=== PATIENT | female | born 1970 | race Caucasian/White ===

== ENCOUNTER 2016-09-23 17:25 | Emergency (ER) | payer BC ==
[2016-09-23 20:05] VITALS: BP 132/76
--- NOTE | 2016-09-23 20:30 | UC ---
Respiratory Complaint HPI - HPI Summary HPI Summary: sx started 2 weeks ago--coug, saw PCP, dx'd with viral illness; cough continues , now with post nasal drainage, scratchy throat, cough worsened in the past few days and with sinus pressure and productive post nasal drip and she hears occasional wheeze. [ End ] - History of Current Complaint Chief Complaint: UCGeneralIllness Stated Complaint: THROAT,COUGH Time Seen by Provider: 09/23/16 20:21 Hx Last Menstrual Period: 09/16/16 - Allergies/Home Medications Allergies/Adverse Reactions: Allergies Allergy/AdvReac Type Severity Reaction Status Date / Time Codeine AdvReac GI Verified 09/23/16 20:05 Penicillins AdvReac GI Verified 09/23/16 20:05 Sulfa Antibiotics AdvReac GI Verified 09/23/16 20:05 PMH/Surg Hx/FS Hx/Imm Hx Previously Healthy: Yes Endocrine History Of: Reports: Diabetes Cardiovascular History Of: Denies: Cardiac Disorders Respiratory History Of: Denies: COPD GI/ History Of: Denies: Gastroesophageal Reflux Neurological History Of: Denies: TIA Psychological History Of: Denies: Anxiety Cancer History Of: Denies: Lung Cancer - Surgical History Surgical History: Yes Surgery Procedure, Year, and Place: GB. foot surgery. . HYSTEROSCOPY , FEBRUARY 2014. WISDOM TEETH EXTRACTION--03/2015 - Family History Known Family History: Positive: Hypertension, Diabetes - Mother and Uncle - Social History Occupation: Employed Full-time - teacher Alcohol Use: None Substance Use Type: None Smoking Status (MU): Never Smoked Tobacco Have You Smoked in the Last Year: No - Immunization History Most Recent Influenza Vaccination: [id number] Review of Systems Constitutional: Fatigue Skin: Negative Eyes: Negative ENT: Nasal Discharge Respiratory: Cough Cardiovascular: Negative Gastrointestinal: Negative Genitourinary: Negative Motor: Negative Neurovascular: Negative Musculoskeletal: Negative Neurological: Negative Psychological: Negative All Other Systems Reviewed And Are Negative: Yes Physical Exam Triage Information Reviewed: Yes Appearance: Well-Appearing, No Pain Distress, Well-Nourished Vital Signs: Initial Vital Signs Temp 97.4 F 09/23/16 20:00 Pulse 106 09/23/16 20:00 Resp 18 09/23/16 20:00 BP 132/76 09/23/16 20:00 Pulse Ox 99 09/23/16 20:00 Vital Signs Reviewed: Yes Eye Exam: Normal ENT Exam: Normal ENT: Positive: Pharynx normal - purulent post nasal drip, Nasal drainage - purulent, TM dull, Other: - left frontal sinus tenderness to palpation Dental Exam: Normal Neck exam: Normal Neck: Positive: 1 Respiratory Exam: Normal Cardiovascular Exam: Normal Abdominal Exam: Normal Musculoskeletal Exam: Normal Neurological Exam: Normal Psychological Exam: Normal Skin Exam: Normal UC Diagnostic Evaluation - Laboratory O2 Sat by Pulse Oximetry: 99 Respiratory Course/Dx - Course Course Of Treatment: Due to duration of illness will advise she start netti pot and flonase daily and if Sx worse in the next 3 days then start augmentin. she states she had nausea with augmentin but can tolerate and will take with probiotics. - Differential Dx/Diagnosis Differential Diagnosis/HQI/PQRI: Bronchitis Provider Diagnoses: Bronchitis Discharge - Discharge Plan Condition: Good Disposition: HOME Prescriptions: Amoxicillin/Clavulanate TAB* [Augmentin TAB 875*] 875 mg PO BID #20 tab Patient Education Materials: Acute Bronchitis (ED) Referrals: Robert Kenny DO [Primary Care Provider] - 3 Days Additional Instructions: As we discussed you likely have a viral infection at this time but if your symptoms persist or worsen then you may start the prescribed oral antibiotic as you have been ill for > 2 weeks and not showing signs of improvement. If you end up taking the Augmentin please also take probiotics.
== END 2016-09-23 20:39 | disposition home or self-care (01) ==
LOC: UCCORT 17:25
DX: J20.9 Acute bronchitis, unspecified (principal); R09.82 Postnasal drip; R53.83 Other fatigue; E11.9 Type 2 diabetes mellitus without complications; Z88.0 Allergy status to penicillin; Z88.2 Allergy status to sulfonamides; Z88.5 Allergy status to narcotic agent
CPT/HCPCS: 99212; G0463

== ENCOUNTER 2016-12-11 08:53 | Emergency (ER) | payer BC ==
[2016-12-11 09:40] VITALS: BP 132/79
[2016-12-11] MEDS ORDERED: Ibuprofen TAB* 400 MG PO ONE (09:47)
--- NOTE | 2016-12-11 09:48 | UC ---
Throat Pain/Nasal Jhon HPI - HPI Summary HPI Summary: complaint of sore throat headache that started last night feels achiness in entire body denies fever and chills denies N/V/D hasn't taken any medications for symptoms - History of Current Complaint Chief Complaint: UCRespiratory Stated Complaint: THROAT Time Seen by Provider: 12/11/16 09:41 Hx Obtained From: Patient Hx Last Menstrual Period: 12/09/16 - Allergies/Home Medications Allergies/Adverse Reactions: Allergies Allergy/AdvReac Type Severity Reaction Status Date / Time Codeine AdvReac GI Verified 12/11/16 09:34 Penicillins AdvReac GI Verified 12/11/16 09:34 Sulfa Antibiotics AdvReac GI Verified 12/11/16 09:34 PMH/Surg Hx/FS Hx/Imm Hx Previously Healthy: Yes Endocrine History Of: Reports: Diabetes Cardiovascular History Of: Denies: Cardiac Disorders Respiratory History Of: Denies: COPD GI/ History Of: Denies: Gastroesophageal Reflux Neurological History Of: Denies: TIA Psychological History Of: Denies: Anxiety Cancer History Of: Denies: Lung Cancer - Surgical History Surgical History: Yes Surgery Procedure, Year, and Place: GB. foot surgery. . HYSTEROSCOPY , FEBRUARY 2014. WISDOM TEETH EXTRACTION--03/2015 - Family History Known Family History: Positive: Hypertension, Diabetes - Mother and Uncle - Social History Occupation: Employed Full-time Lives: With Family Alcohol Use: None Substance Use Type: None Smoking Status (MU): Never Smoked Tobacco Have You Smoked in the Last Year: No - Immunization History Most Recent Influenza Vaccination: [id number] Review of Systems Constitutional: Negative Skin: Negative Eyes: Negative ENT: Sore Throat Respiratory: Negative Cardiovascular: Negative Gastrointestinal: Negative Genitourinary: Negative Motor: Negative Neurovascular: Negative Musculoskeletal: Negative Neurological: Headache Psychological: Negative All Other Systems Reviewed And Are Negative: Yes Physical Exam Triage Information Reviewed: Yes Appearance: No Pain Distress, Well-Nourished, Ill-Appearing Vital Signs: Initial Vital Signs Temp 98.9 F 12/11/16 09:35 Pulse 119 12/11/16 09:35 Resp 20 12/11/16 09:35 BP 132/79 12/11/16 09:35 Pulse Ox 99 12/11/16 09:35 Vital Signs Reviewed: Yes Eyes: Positive: Conjunctiva Clear ENT: Positive: Pharyngeal erythema, Tonsillar swelling. Negative: Nasal congestion, Nasal drainage Dental: Positive: Cervical Lymphadenopathy Respiratory: Positive: Lungs clear, Normal breath sounds, No respiratory distress, No accessory muscle use Cardiovascular: Positive: No Murmur, Pulses Normal, Tachycardia Abdomen Description: Positive: Nontender, Soft, Distended Bowel Sounds: Positive: Present Musculoskeletal: Positive: No Edema Neurological: Positive: Alert Psychological Exam: Normal Skin Exam: Normal Throat Pain/Nasal Course/Dx - Course Course Of Treatment: exam completed. viral illness supportive treatment only - Differential Dx/Diagnosis Differential Diagnosis/HQI/PQRI: Influenza, Pharyngitis, Tonsillitis Provider Diagnoses: pharyngitis Discharge - Discharge Plan Condition: Stable Disposition: HOME Patient Education Materials: Pharyngitis (ED) Referrals: Robert Kenny DO [Primary Care Provider] - Additional Instructions: PHARYNGITIS (Sore Throat) What is Pharyngitis? The medical name for a sore throat is Pharyngitis. It is caused by an infection or irritation of your throat or tonsils. The infection can be caused by a virus or by bacteria. Not everyone with Pharyngitis needs antibiotics. Antibiotics will not make viral infections better, and they will not help a sore throat caused by irritation. Symptoms May Include: Sore throat Swelling of the glands in the neck Trouble or pain with swallowing Fever Headache Cough Extreme tiredness Ear pain Treatment Recommendations: Gargle every few hours with a solution of 1/4 teaspoon of salt dissolved in 1/ 2 cup of warm water. Drink plenty of warm beverages, like tea with lemon, (with or without honey) and soup. You may eat and drink cold foods and liquids like frozen yogurt, popsicles, and ice water if that makes your throat feel better. The goal is to keep you well hydrated. Use a "cool-mist" vaporizer or humidifier in the room where you spend most of your time. If you get a sore throat often, consider adding an electronic air filter and humidifier to your furnace system. Don't smoke. Do not eat spicy foods. Take medicine exactly as prescribed. If you do not think it is helping, call your healthcare provider. Do not increase how much or how often you take it without getting their OK first. Non-prescription anti-inflammatory medicine like ibuprofen (Motrin, Advil) or naproxen (Aleve) may help lessen the pain. You should not take these medicines if you have had bleeding in your stomach in the past. Acetaminophen ( Tylenol) is another choice of medicine that may help the pain. If pain medicine that makes you tired or sleepy or contains narcotics is prescribed, you should not drink, drive, or participate in any other activities that you need to be clear-headed for. Please keep all medicines out of the reach of children. Do not get in close contact with anyone you know who has a sore throat. Use throat lozenges (Cepostat, Bylas, etc.) or suck on hard candy for temporary relief of the pain with swallowing. (Do not give to children under age 5.) Call Your Doctor or Return Here IF: Your symptoms do not start to get better within 2 days or you become worse. You have a fever over 101.0 F orally. You cant swallow liquids or saliva. You are drooling. You start to have trouble breathing. You start to have a rash. You start to have a stiff neck. You start to have pain in your chest. You start to have any symptoms that are new or worry you. Your blood pressure is pre-hypertensive reading. Please contact your primary care provider within 1 day -4 weeks for further evaluation.
== END 2016-12-11 10:51 | disposition home or self-care (01) ==
LOC: UCCORT 08:53
DX: J02.9 Acute pharyngitis, unspecified (principal); R51 Headache; E11.9 Type 2 diabetes mellitus without complications; Z88.5 Allergy status to narcotic agent; Z88.0 Allergy status to penicillin; Z88.2 Allergy status to sulfonamides
CPT/HCPCS: 87502; 87651; 99212; A9270-GY; G0463

== ENCOUNTER 2017-01-21 18:18 | Emergency (ER) | payer BC ==
[2017-01-21 19:55] VITALS: BP 124/64
--- NOTE | 2017-01-21 20:13 | UC ---
Throat Pain/Nasal Jhon HPI - HPI Summary HPI Summary: pt c/o nasal congestion, PND, sore throat, watery eyes, cough X 4 days. Has known exposure to strep throat - History of Current Complaint Chief Complaint: UCGeneralIllness Stated Complaint: SORE THROAT Time Seen by Provider: 01/21/17 19:58 Hx Obtained From: Patient Hx Last Menstrual Period: 12/26/16 ?: No Onset/Duration: Sudden Onset, Lasting Days Cough: Nonproductive Associated Signs & Symptoms: Positive: Dysphagia, Other - nasal congestion - Allergies/Home Medications Allergies/Adverse Reactions: Allergies Allergy/AdvReac Type Severity Reaction Status Date / Time Codeine AdvReac GI Verified 01/21/17 19:50 Penicillins AdvReac GI Verified 01/21/17 19:50 Sulfa Antibiotics AdvReac GI Verified 01/21/17 19:50 Home Medications: Home Medications Ibuprofen TAB* [Advil TAB*] 800 mg PO Q8H PRN 01/21/17 [History Confirmed ] PMH/Surg Hx/FS Hx/Imm Hx Previously Healthy: Yes - Surgical History Surgical History: Yes Surgery Procedure, Year, and Place: GB. foot surgery. . HYSTEROSCOPY , FEBRUARY 2014. WISDOM TEETH EXTRACTION--03/2015 - Family History Known Family History: Positive: Hypertension, Diabetes - Mother and Uncle - Social History Alcohol Use: None Substance Use Type: None Smoking Status (MU): Never Smoked Tobacco Have You Smoked in the Last Year: No - Immunization History Most Recent Influenza Vaccination: [id number] Review of Systems Constitutional: Fatigue Skin: Negative Eyes: Negative ENT: Sore Throat, Other - PND Respiratory: Cough Cardiovascular: Negative Gastrointestinal: Negative Genitourinary: Negative Motor: Negative Neurovascular: Negative Musculoskeletal: Negative Neurological: Negative Psychological: Negative All Other Systems Reviewed And Are Negative: Yes Physical Exam Triage Information Reviewed: Yes Appearance: Well-Appearing Vital Signs: Initial Vital Signs Temp 98.4 F 01/21/17 19:51 Pulse 92 01/21/17 19:51 Resp 16 01/21/17 19:51 BP 124/64 01/21/17 19:51 Pulse Ox 100 01/21/17 19:51 Vital Signs Reviewed: Yes Eye Exam: Normal ENT Exam: Other ENT: Positive: Pharyngeal erythema, Other: - nasal congestion, PND Neck exam: Normal Respiratory Exam: Normal Cardiovascular Exam: Normal Musculoskeletal Exam: Normal Neurological Exam: Normal Psychological Exam: Normal Skin Exam: Normal Throat Pain/Nasal Course/Dx - Differential Dx/Diagnosis Differential Diagnosis/HQI/PQRI: Pharyngitis, URI Provider Diagnoses: pharyngitis. Allergic rhinitis Discharge - Discharge Plan Condition: Stable Disposition: HOME Prescriptions: Fexofenadine-Pseudoephedrine [Tawana-D 24 Hour Allergy] 1 tab PO DAILY #10 tab Patient Education Materials: Pharyngitis (ED), Allergies (ED) Referrals: Robert Kenny DO [Primary Care Provider] - If Needed
== END 2017-01-21 20:42 | disposition home or self-care (01) ==
LOC: UCCORT 18:18
DX: J02.9 Acute pharyngitis, unspecified (principal); J30.9 Allergic rhinitis, unspecified; Z88.5 Allergy status to narcotic agent; Z88.0 Allergy status to penicillin; Z88.2 Allergy status to sulfonamides
CPT/HCPCS: 87651; 99212; G0463

== ENCOUNTER 2018-01-13 14:42 | Emergency (ER) | payer BC ==
[2018-01-13 15:24] VITALS: BP 114/72
--- NOTE | 2018-01-13 15:37 | UC ---
Throat Pain/Nasal Jhon HPI - HPI Summary HPI Summary: Worsening and severe sinus pain thick green nasal drainage severe pain behind eyes and face upper jaw - History of Current Complaint Chief Complaint: UCRespiratory Stated Complaint: SINUS Time Seen by Provider: 01/13/18 15:09 Hx Obtained From: Patient Hx Last Menstrual Period: 01/12/18 ?: No Onset/Duration: Sudden Onset, Lasting Days - 4 Severity: Moderate Cough: None Associated Signs & Symptoms: Positive: Sinus Discomfort, Nasal Discharge - Allergies/Home Medications Allergies/Adverse Reactions: Allergies Allergy/AdvReac Type Severity Reaction Status Date / Time codeine AdvReac GI Upset Verified 01/13/18 15:05 Penicillins AdvReac GI Upset Verified 01/13/18 15:05 Sulfa (Sulfonamide AdvReac GI Upset Verified 01/13/18 15:05 Antibiotics) Home Medications: Home Medications Acetaminophen [Acetaminophen Extra Strength] 1,000 mg PO ONCE PRN 01/13/18 [ History Confirmed 01/13/18] Atorvastatin* [Lipitor 40 MG*] 40 mg PO 1700 01/13/18 [History Confirmed ] Clopidogrel TAB* [Plavix TAB*] 75 mg PO DAILY 01/13/18 [History Confirmed ] PMH/Surg Hx/FS Hx/Imm Hx Previously Healthy: No Endocrine History: Diabetes, Dyslipidemia Cardiovascular History: Cardiac Disease Psychological History: Depression - Surgical History Surgical History: Yes Surgery Procedure, Year, and Place: GB. foot surgery. . HYSTEROSCOPY , FEBRUARY 2014. WISDOM TEETH EXTRACTION--03/2015. December 05 2 cardiac stents - Family History Known Family History: Positive: Hypertension, Diabetes - Mother and Uncle - Social History Occupation: Employed Full-time Lives: With Family Alcohol Use: None Substance Use Type: None Smoking Status (MU): Never Smoked Tobacco Have You Smoked in the Last Year: No - Immunization History Most Recent Influenza Vaccination: [id number] Review of Systems Constitutional: Negative Skin: Negative Eyes: Negative ENT: Sore Throat, Ear Ache, Nasal Discharge, Sinus Congestion, Sinus Pain/ Tenderness Respiratory: Negative Cardiovascular: Negative Gastrointestinal: Negative Genitourinary: Negative Motor: Negative Neurovascular: Negative Musculoskeletal: Negative Neurological: Headache Psychological: Negative Is Patient Immunocompromised?: No All Other Systems Reviewed And Are Negative: Yes Physical Exam Triage Information Reviewed: Yes Appearance: Well-Appearing, No Pain Distress, Well-Nourished Vital Signs: Initial Vital Signs Temp 97.8 F 01/13/18 15:05 Pulse 82 01/13/18 15:05 Resp 16 01/13/18 15:05 BP 114/72 01/13/18 15:05 Pulse Ox 99 01/13/18 15:05 Vital Signs Reviewed: Yes Eye Exam: Normal Eyes: Positive: Conjunctiva Clear ENT Exam: Normal ENT: Positive: Normal ENT inspection, Hearing grossly normal, Pharynx normal, TMs normal, Dental tenderness, Sinus tenderness, Uvula midline. Negative: Nasal congestion, Nasal drainage, Tonsillar swelling, Tonsillar exudate, Trismus , Muffled voice, Hoarse voice Dental Exam: Normal Neck exam: Normal Neck: Positive: Supple, Nontender, No Lymphadenopathy Respiratory Exam: Normal Respiratory: Positive: Chest non-tender, Lungs clear, Normal breath sounds, No respiratory distress, No accessory muscle use Cardiovascular Exam: Normal Cardiovascular: Positive: RRR, No Murmur, Pulses Normal, Brisk Capillary Refill Musculoskeletal Exam: Normal Musculoskeletal: Positive: Strength Intact, ROM Intact, No Edema Neurological Exam: Normal Neurological: Positive: Alert, Muscle Tone Normal Psychological Exam: Normal Skin Exam: Normal Throat Pain/Nasal Course/Dx - Course Assessment/Plan: flonase, zithromax, zyrtec increase fluids follow with pcp - Differential Dx/Diagnosis Provider Diagnoses: Acute rhinosinusitis Discharge - Sign-Out/Discharge Documenting (check all that apply): Discharge/Admit/Transfer - Discharge Plan Condition: Stable Disposition: HOME Prescriptions: Azithromycin TAB* [Zithromax TAB (Z-STIVEN) 250 mg #6 tabs] 2 tab PO .TODAY, THEN 1 DAILY #1 stiven Fluticasone NASAL SPRAY 50MCG* [Flonase NASAL SPRAY 50MCG*] 2 spray BOTH NARES DAILY #1 btl Patient Education Materials: Cetirizine (By mouth), Sinusitis (ED), Nasal Rinse (ED) Referrals: No Primary Care Phys,NOPCP [Primary Care Provider] - [facility] [place] [place] [facility] [Outside] - Billing Disposition and Condition Condition: STABLE Disposition: HOME
== END 2018-01-13 15:46 | disposition home or self-care (01) ==
LOC: UCCORT 14:42
DX: J01.90 Acute sinusitis, unspecified (principal); Z88.5 Allergy status to narcotic agent; Z88.0 Allergy status to penicillin; Z88.2 Allergy status to sulfonamides; E11.9 Type 2 diabetes mellitus without complications; E78.5 Hyperlipidemia, unspecified; I51.9 Heart disease, unspecified
CPT/HCPCS: 99212; G0463